=== PATIENT | female | born 1990 | race Caucasian/White ===

== ENCOUNTER 2018-02-01 08:32 | Emergency (ER) | payer SELFPAY, OTHER | END 2018-02-01 10:15 | disposition home or self-care (01) | LOC: M ED 08:32 | DX: M25.512 Pain in left shoulder (principal); J45.909 Unspecified asthma, uncomplicated; Z72.0 Tobacco use; Z88.1 Allergy status to other antibiotic agents | CPT/HCPCS: 73030 ==